=== PATIENT | male | born 1960 | race Two or more races ===

== ENCOUNTER 2021-06-09 19:36 | Emergency (ER) | payer BC ==
[2021-06-09 20:01] VITALS: BP 146/66; PULSE 75
[2021-06-09] MEDS ORDERED: methylPREDNISolone Sodium Succinate 125 MG/2 ML SDV IM ONE (20:04)
[2021-06-09] MEDS ORDERED: Take Home: predniSONE 20 MG, 2 Tab Pack PO ONE (20:04)
--- NOTE | 2021-06-09 20:10 | EDM.PDOC ---
ED HPI GENERAL MEDICAL PROBLEM - General Chief Complaint: Allergic Reaction Stated Complaint: ALLERGIES Time Seen by Provider: 06/09/21 19:52 Source of Information: Reports: Patient History Limitations: Reports: No Limitations - History of Present Illness INITIAL COMMENTS - FREE TEXT/NARRATIVE: Melecio is a 60 year old male who presents with hives. States have been present now for about 24 hours. Did take a Benadryl at 1100 this am and they seemed to get better after that but have again now recurred. Are pruritic. Unsure exactly what caused but does admit that he bought new laundry detergent. Denies having a reaction like this to anything in the past. No other new foods or products. No shortness of breath/wheezing. No dysphagia. Denies any other concerns. Duration: Day(s): Location: Reports: Generalized Quality: Reports: Other (itching) Improves with: Reports: Medication Associated Symptoms: Denies: Chest Pain, Cough, Fever/Chills, Malaise, Nausea/Vomiting, Shortness of Breath, Syncope, Weakness Treatments KENNEL ATTENDANT: Reports: Intubation Other Treatments KENNEL ATTENDANT: benadryl - Related Data Allergies Allergy/AdvReac Type Severity Reaction Status Date / Time No Known Allergies Allergy Verified 12/16/15 15:44 Home Meds: Home Meds Cyanocobalamin (Vitamin B12) [Vitamin B12] 1 tab PO DAILY 10/20/15 [History] [place]-3S/DHA/Epa/Fish Oil/D3 [[place]-3 + D Softgel] 1 cap PO BID 10/20/15 [History] Past Medical History Cardiovascular History: Reports: Hypertension Social & Family History - Tobacco Use Tobacco Use Status *Q: Never Tobacco User Second Hand Smoke Exposure: No - Caffeine Use Caffeine Use: Reports: Coffee - Recreational Drug Use Recreational Drug Use: No ED ROS ALLERGIC REACTION - Review of Systems Review Of Systems: See Below Constitutional: Denies: Fever, Chills, Malaise, Weakness, Fatigue, Decreased Appetite HEENT: Denies: Ear Pain, Sinus Problem, Throat Pain, Throat Swelling, Vertigo, Vision Change Respiratory: Denies: Shortness of Breath, Cough Cardiovascular: Denies: Chest Pain, Edema, Lightheadedness Endocrine: Denies: Fatigue GI/Abdominal: Denies: Abdominal Pain, Nausea, Vomiting Skin: Reports: Pruritis, Urticaria Neurological: Denies: Dizziness, Headache, Weakness Psychiatric: Reports: No Symptoms ED EXAM GENERAL NO PERIP PULSE - Physical Exam Exam: See Below Exam Limited By: No Limitations General Appearance: Alert, WD/WN, No Apparent Distress Ears: Normal External Exam, Normal TMs Nose: Normal Inspection, Normal Mucosa, No Blood Throat/Mouth: Normal Inspection, Normal Oropharynx Head: Normocephalic Neck: Normal Inspection, Supple, Non-Tender Respiratory/Chest: No Respiratory Distress, Lungs Clear, Normal Breath Sounds Cardiovascular: Regular Rate, Rhythm Skin Exam: Warm, Other (diffuse hives scattered throughout) Course - Vital Signs Last Recorded V/S: Last Vital Signs Temp 97.9 F 06/09/21 19:50 Pulse 75 06/09/21 19:50 Resp 12 06/09/21 19:50 BP 146/66 H 06/09/21 19:50 Pulse Ox 98 06/09/21 19:50 - Orders/Labs/Meds Orders: Active Orders 24 hr Category Date Time Status methylPREDNISolone Sod Succ [Solu-MEDROL] Med 06/09/21 20:04 Once 125 mg IM ONETIME ONE predniSONE [Take Home: predniSONE 20 MG, 2 Tab Pack] Med 06/09/21 20:04 Once 1 packet PO ONETIME ONE Departure - Departure Time of Disposition: 20:09 Disposition: Home, Self-Care 01 Condition: Good Clinical Impression: Urticaria - Discharge Information *PRESCRIPTION DRUG MONITORING PROGRAM REVIEWED*: No *COPY OF PRESCRIPTION DRUG MONITORING REPORT IN PATIENT VENTURA: No Instructions: Hives Referrals: PCP,None [Primary Care Provider] - Additional Instructions: 1. Benadryl 50 mg every 6 hours for 3 more doses 2. Prednisone 20 mg~ 2 tabs daily for 4 days. Start tomorrow 3. Change laundry detergent as possible source of reaction 4. Follow up if persisting concerns, develop breathing changes, difficulty swallowing Sepsis Event Note (ED) - Evaluation Sepsis Screening Result: No Definite Risk - Focused Exam Vital Signs: Vital Signs Temp Pulse Resp BP Pulse Ox 06/09/21 19:50 97.9 F 75 12 146/66 H 98 - My Orders Last 24 Hours: My Active Orders 06/09/21 20:04 methylPREDNISolone Sod Succ [Solu-MEDROL] 125 mg IM ONETIME ONE predniSONE [Take Home: predniSONE 20 MG, 2 Tab Pack] 1 packet PO ONETIME ONE - Assessment/Plan Last 24 Hours: My Active Orders 06/09/21 20:04 methylPREDNISolone Sod Succ [Solu-MEDROL] 125 mg IM ONETIME ONE predniSONE [Take Home: predniSONE 20 MG, 2 Tab Pack] 1 packet PO ONETIME ONE
== END 2021-06-09 20:20 | disposition home or self-care (01) ==
LOC: VM.ED 19:36
DX: L50.9 Urticaria, unspecified (principal); I10 Essential (primary) hypertension; Z79.899 Other long term (current) drug therapy
CPT/HCPCS: 96372; 99283; J2930; J7512

== ENCOUNTER 2021-06-10 15:33 | Emergency (ER) | payer BC ==
--- NOTE | 2021-06-10 15:41 | EDM.PDOC ---
ED HPI GENERAL MEDICAL PROBLEM - General Chief Complaint: Respiratory Problem Stated Complaint: ALLERGY ACTING UP Time Seen by Provider: 06/10/21 15:36 Source of Information: Reports: Patient History Limitations: Reports: No Limitations - History of Present Illness INITIAL COMMENTS - FREE TEXT/NARRATIVE: Patient comes into the emergency department complaints of seasonal allergy. Patient was in the emergency department yesterday for increasing seasonal allergies and was prescribed a daily Claritin and also steroids. Patient states that he felt good throughout most of the afternoon yesterday. He took his Claritin this morning and took a steroid tablet approximately 2 hours ago. He states that his allergies are beginning to return. He is got itchy eyes, runny nose, and congestion. He denies any chest pain, shortness of breath, dizziness, change in vision, blurred vision, abdominal discomfort, or genitourinary concerns. He states he still feels better than he originally did and believes that the Claritin is helping however he was not sure if he should return to the ER not since the symptoms were beginning to return. Onset: Gradual Quality: Reports: Other Severity: Mild Improves with: Reports: Other Worsens with: Reports: None Associated Symptoms: Reports: No Other Symptoms - Related Data Allergies Allergy/AdvReac Type Severity Reaction Status Date / Time No Known Allergies Allergy Verified 12/16/15 15:44 Home Meds: Home Meds Cyanocobalamin (Vitamin B12) [Vitamin B12] 1 tab PO DAILY 10/20/15 [History] [place]-3S/DHA/Epa/Fish Oil/D3 [[place]-3 + D Softgel] 1 cap PO BID 10/20/15 [History] Past Medical History - Past Health History Medical/Surgical History: Denies Medical/Surgical History Cardiovascular History: Reports: Hypertension Social & Family History - Caffeine Use Caffeine Use: Reports: Coffee ED ROS GENERAL - Review of Systems Review Of Systems: Comprehensive ROS is negative, except as noted in HPI. Constitutional: Reports: No Symptoms HEENT: Reports: No Symptoms Respiratory: Reports: No Symptoms Cardiovascular: Reports: No Symptoms Endocrine: Reports: No Symptoms GI/Abdominal: Reports: No Symptoms : Reports: No Symptoms Musculoskeletal: Reports: No Symptoms Skin: Reports: No Symptoms Neurological: Reports: No Symptoms Psychiatric: Reports: No Symptoms Hematologic/Lymphatic: Reports: No Symptoms Immunologic: Reports: No Symptoms ED EXAM, GENERAL - Physical Exam Exam: See Below Exam Limited By: No Limitations General Appearance: Alert, WD/WN, No Apparent Distress Ears: Normal External Exam, Normal Canal, Hearing Grossly Normal, Normal TMs Ear Exam: Bilateral Ear: Auricle Normal, Canal Normal, TM normal Nose: Normal Inspection, Normal Mucosa, No Blood Throat/Mouth: Normal Inspection, Normal Lips, Normal Teeth, Normal Gums, Normal Oropharynx, Normal Voice, No Airway Compromise Head: Atraumatic, Normocephalic Neck: Normal Inspection, Supple, Non-Tender, Full Range of Motion Respiratory/Chest: No Respiratory Distress, Lungs Clear, Normal Breath Sounds, No Accessory Muscle Use, Chest Non-Tender Cardiovascular: Normal Peripheral Pulses, Regular Rate, Rhythm, No Edema, No Gallop, No JVD, No Murmur, No Rub GI/Abdominal: Normal Bowel Sounds, Soft, Non-Tender, No Organomegaly, No Distention, No Abnormal Bruit, No Mass Back Exam: Normal Inspection, Full Range of Motion, NT Extremities: Normal Inspection, Normal Range of Motion, Non-Tender, Normal Capillary Refill, No Pedal Edema Neurological: Alert, Oriented, CN II-XII Intact, Normal Cognition, Normal Gait, Normal Reflexes, No Motor/Sensory Deficits Psychiatric: Normal Affect, Normal Mood Skin Exam: Warm, Dry, Intact, Normal Color, No Rash Lymphatic: No Adenopathy Departure - Departure Time of Disposition: 15:40 Disposition: Home, Self-Care 01 Condition: Good Clinical Impression: Seasonal allergies - Discharge Information *PRESCRIPTION DRUG MONITORING PROGRAM REVIEWED*: Not Applicable *COPY OF PRESCRIPTION DRUG MONITORING REPORT IN PATIENT VENTURA: Not Applicable Instructions: Allergic Rhinitis, Adult, [id number] Forms: ED Department Discharge Additional Instructions: 1. rest 2. increase your water intake 3. Continue all at home medications 4. Activity and diet as tolerated 5. Can take over the counter Tylenol for any pain or discomfort 6. Follow up with PCP if symptoms continue, return, or progress 7. Call with any questions or concerns - Assessment/Plan Assessment:: 1. seasonal allergies Plan: 1. Patient advised to continue to take daily medication and medication prescribed in the ER yesterday 2. Education provided the patient regarding activity, diet, rest, [id number] medication modalities, and follow-up care was provided 3. Patient and family are agreeable to the above plan of care 4. All questions and concerns were addressed with the patient and family prior to discharge
[2021-06-10 16:20] VITALS: BP 126/63; PULSE 87
== END 2021-06-10 15:51 | disposition home or self-care (01) ==
LOC: VM.ED 15:33
DX: J30.2 Other seasonal allergic rhinitis (principal); I10 Essential (primary) hypertension
CPT/HCPCS: 99283

== ENCOUNTER 2023-02-26 14:42 | Emergency (ER) | payer BC, MEDICAID ==
[2023-02-26] MEDS: GI Cocktail Oral Solution 30 ML PO ONE (15:28)
[2023-02-26 15:51] LABS: CHLORIDE,CL 105 mmol/L (98-107); SODIUM,NA 142 mmol/L (136-145)
[2023-02-26 15:53] LABS: ANION GAP 16.4 mmol/L (5-15); ESTIMATED GFR 85 mL/min (>=60)
[2023-02-26] MEDS: Iopamidol 612 MG/ML 100 ML Bottle IVPUSH ONE (17:31)
[2023-02-26] MEDS: HYDROmorphone 1 MG/ML Syringe IVPUSH ONE (18:17)
[2023-02-26 20:03] VITALS: BP 157/62; PULSE 62
== END 2023-02-26 21:00 | disposition short-term general hospital (02) ==
LOC: VM.ED 14:42 → MERGE 14:42 → VM.ED 21:00
DX: R59.0 Localized enlarged lymph nodes (principal); R18.8 Other ascites; R23.4 Changes in skin texture; I10 Essential (primary) hypertension; Z87.891 Personal history of nicotine dependence
CPT/HCPCS: 36415; 74177; 80053; 81001; 82150; 83605; 83690; 84145; 85025; 86140; 96374; 99284; 99285-25; A9270-GY; J1170; Q9967

== ENCOUNTER 2023-03-03 08:23 | Emergency (ER) | payer BC ==
[2023-03-03] MEDS: Ondansetron 4 MG/2 ML SDV IVPUSH ONE (08:55)
[2023-03-03 09:02] LABS: BASOPHILS PERCENT AUTO 0.1 % (0.2-1.2); EOSINOPHILS ABSOLUTE AUTO 0.1 x10^3/uL (0.0-0.5); HEMATOCRIT 44.5 % (40.0-52.0); HEMOGLOBIN 15.7 g/dL (14.0-18.0); LYMPHOCYTES ABSOLUTE AUTO 1.3 x10^3/uL (1.0-4.8); LYMPHOCYTES PERCENT AUTO 9.4 % (25.0-50.0); MEAN CORPUSCULAR HEMOGLOBIN 30.4 pg (26.0-32.0); MEAN CORPUSCULAR HGB CONC 35.3 g/dL (32.0-36.0); MEAN CORPUSCULAR VOLUME 86.1 fL (78.0-93.0); MONOCYTES ABSOLUTE AUTO 1.1 x10^3/uL (0.0-0.8); MONOCYTES PERCENT AUTO 7.6 % (2.0-11.0); NEUTROPHILS ABSOLUTE AUTO 11.6 x10^3/uL (1.8-7.7); NEUTROPHILS PERCENT AUTO 81.2 % (50.0-80.0); PLATELET COUNT,PLT 200 x10^3/uL (130-400); RED BLOOD CELL COUNT 5.17 x10^6/uL (4.5-6.0); WHITE BLOOD CELL COUNT,WBC 14.3 x10^3/uL (4.0-10.0)
[2023-03-03] MEDS: HYDROmorphone 0.5 MG/0.5 ML Syringe IVPUSH ONE ×4 (09:09→13:11)
[2023-03-03 09:17] LABS: INR 1.1 (2.0-3.5); PROTHROMBIN TIME 11.6 SEC (9.5-12.2)
[2023-03-03 09:21] LABS: A/G RATIO 0.78; ALANINE AMINOTRANSFERASE,ALT 34 U/L (16-63); ALBUMIN 3.6 g/dL (3.4-5.0); ALKALINE PHOSPHATASE 168 U/L (46-116); ASPARTATE AMNIOTRANSFERASE,AST 28 U/L (15-37); BILIRUBIN TOTAL 0.9 mg/dL (0.2-1.0); BLOOD UREA NITROGEN,BUN 17 mg/dL (7-18); CARBON DIOXIDE,CO2 24 mmol/L (21-32); CHLORIDE,CL 105 mmol/L (98-107); CREATININE 1.3 mg/dL (0.70-1.30); GLUCOSE RANDOM 171 mg/dL (70-99); LIPASE 179 U/L (73-393); POTASSIUM,K 3.2 mmol/L (3.5-5.1); PROTEIN TOTAL,TP 8.2 g/dL (6.4-8.2); SODIUM,NA 141 mmol/L (136-145)
[2023-03-03 09:22] LABS: ANION GAP 15.2 mmol/L (5-15); ESTIMATED GFR 62 mL/min (>=60)
[2023-03-03] MEDS: NS with KCl 40mEq 1,000 ML IV SCH (10:13)
[2023-03-03] MEDS: Prochlorperazine 10 MG/2 ML SDV IV ONE (10:13)
[2023-03-03] MEDS ORDERED: HYDROmorphone 0.5 MG/0.5 ML Syringe IVPUSH ONE (10:54)
[2023-03-03] MEDS: Iopamidol 612 MG/ML 50 ML SDV IVPUSH ONE (11:45)
[2023-03-03] MEDS: Iopamidol 612 MG/ML 100 ML Bottle IVPUSH ONE (11:45)
[2023-03-03 15:13] VITALS: BP 162/98; PULSE 102
== END 2023-03-03 15:15 | disposition short-term general hospital (02) ==
LOC: VM.ED 08:23
DX: K26.9 Duodenal ulcer, unspecified as acute or chronic, without hemorrhage or perforation (principal); K83.09 Other cholangitis; I10 Essential (primary) hypertension
CPT/HCPCS: 36415; 74177; 80053; 83605; 83690; 85025; 85610; 87040; 96361; 96374; 96375; 96376; 99284; 99285-25; J0780; J1170; J2405; J3480; Q9967

== ENCOUNTER 2023-04-01 16:35 | Emergency (ER) | payer BC ==
[2023-04-01 17:13] LABS: BASOPHILS PERCENT AUTO 0.6 % (0.2-1.2); EOSINOPHILS ABSOLUTE AUTO 0.2 x10^3/uL (0.0-0.5); EOSINOPHILS PERCENT AUTO 3.6 % (0.0-4.0); HEMATOCRIT 40.2 % (40.0-52.0); HEMOGLOBIN 13.3 g/dL (14.0-18.0); IMMATURE GRAN ABSOLUTE AUTO 0.04 x10^3/uL (0.00-0.07); LYMPHOCYTES ABSOLUTE AUTO 1.3 x10^3/uL (1.0-4.8); LYMPHOCYTES PERCENT AUTO 26.6 % (25.0-50.0); MEAN CORPUSCULAR HEMOGLOBIN 28.7 pg (26.0-32.0); MEAN CORPUSCULAR HGB CONC 33.1 g/dL (32.0-36.0); MEAN CORPUSCULAR VOLUME 86.6 fL (78.0-93.0); MONOCYTES ABSOLUTE AUTO 0.3 x10^3/uL (0.0-0.8); MONOCYTES PERCENT AUTO 5.6 % (2.0-11.0); NEUTROPHILS ABSOLUTE AUTO 3.2 x10^3/uL (1.8-7.7); NEUTROPHILS PERCENT AUTO 62.8 % (50.0-80.0); PLATELET COUNT,PLT 309 x10^3/uL (130-400); RED BLOOD CELL COUNT 4.64 x10^6/uL (4.5-6.0)
[2023-04-01 17:36] LABS: A/G RATIO 0.41; ALANINE AMINOTRANSFERASE,ALT 28 U/L (16-63); ALBUMIN 2.6 g/dL (3.4-5.0); ALKALINE PHOSPHATASE 207 U/L (46-116); ASPARTATE AMNIOTRANSFERASE,AST 43 U/L (15-37); BILIRUBIN TOTAL 0.8 mg/dL (0.2-1.0); BLOOD UREA NITROGEN,BUN 12 mg/dL (7-18); CALCIUM 8.9 mg/dL (8.5-10.1); CARBON DIOXIDE,CO2 21 mmol/L (21-32); CHLORIDE,CL 104 mmol/L (98-107); CREATININE 1.8 mg/dL (0.70-1.30); GLUCOSE RANDOM 158 mg/dL (70-99); POTASSIUM,K 3.5 mmol/L (3.5-5.1); PROTEIN TOTAL,TP 8.9 g/dL (6.4-8.2); SODIUM,NA 142 mmol/L (136-145)
[2023-04-01] MEDS: Piperacillin/Tazobactam 2.25 GM in Sodium Chloride 0.9% 100 ML IV SCH (17:38)
[2023-04-01 17:40] LABS: ANION GAP 20.5 mmol/L (5-15); ESTIMATED GFR 42 mL/min (>=60)
[2023-04-01] MEDS: Ondansetron 4 MG/2 ML SDV IVPUSH ONE ×2 (17:40→18:58)
[2023-04-01 17:41] LABS: LACTIC ACID 5.4 mmol/L (0.4-2.0)
[2023-04-01 17:45] LABS: INR 1.2 (2.0-3.5); PROTHROMBIN TIME 12.3 SEC (9.5-12.2)
[2023-04-01 17:48] LABS: BASE EXCESS ARTERIAL,POC -10 mmol/L ((-2)-3); HCO3 ARTERIAL,POC 13.5 mmol/L (21-28); O2 SATURATION ARTERIAL,POC 94.9 % (94-98); PCO2 ARTERIAL,POC 19 mmHg (35-48); PH ARTERIAL,POC 7.46 pH (7.35-7.45); PO2 ARTERIAL,POC 68 mmHg (83-108); TCO2 ARTERIAL,POC 13.3 mmol/L (22-29)
[2023-04-01 17:49] LABS: C-REACTIVE PROTEIN 19.7 mg/dL (<=0.9)
[2023-04-01] MEDS: fentaNYL 50 MCG/ML SDV IVPUSH ONE (17:53)
[2023-04-01] MEDS: Lactated Ringers 1,000 ML IV ONE ×2 (17:54→18:24)
[2023-04-01] MEDS: Acetaminophen 325 MG Tab PO ONE (18:01)
[2023-04-01] MEDS: VANCOmycin 2 GM/400 ML 2 GM in Premix Bag 1 BAG IV ONE (18:15)
[2023-04-01] MEDS: PIPERACILLIN IV ONE (21:40)
[2023-04-01] MEDS: TAZOBACTAM IV ONE (21:40)
[2023-04-01] MEDS: SODIUM CHLORIDE 0.9% IV ONE (21:40)
[2023-04-02 13:31] VITALS: BP 146/71; PULSE 122
== END 2023-04-01 18:57 | disposition short-term general hospital (02) ==
LOC: VM.ED 16:35
DX: A41.9 Sepsis, unspecified organism (principal); R65.20 Severe sepsis without septic shock; N17.9 Acute kidney failure, unspecified; R18.8 Other ascites; I10 Essential (primary) hypertension
CPT/HCPCS: 36600; 71046; 80053; 82803; 83605; 83690; 84145; 84484; 85025; 85610; 86140; 87040; 93005; 96365; 96367; 96375; 96376; 99284; 99285-25; A9270-GY; J2405; J2543; J3010; J3370; J3490; J7120

== ENCOUNTER 2023-06-06 04:34 | Emergency (ER) | payer BC ==
[2023-06-06 06:07] VITALS: BP 130/63; PULSE 67
== END 2023-06-06 09:12 | disposition home or self-care (01) ==
LOC: VM.ED 04:34
DX: L76.22 Postprocedural hemorrhage of skin and subcutaneous tissue following other procedure (principal); I10 Essential (primary) hypertension; I25.2 Old myocardial infarction; Z87.891 Personal history of nicotine dependence
CPT/HCPCS: 12011; 99283